=== PATIENT | female | born 1950 | race Caucasian/White ===

== ENCOUNTER → 2020-05-28 | Outpatient (CLI) | payer SELFPAY | LOC: M LABSMTC 08:02 | PROVIDERS: ATTEND Pediatrics | DX: Z20.828 Contact with and (suspected) exposure to other viral communicable diseases (principal) ==

== ENCOUNTER → 2020-07-04 | Outpatient (CLI) | payer SELFPAY | LOC: M LABSMTC 10:40 | PROVIDERS: ATTEND Pediatrics | DX: Z20.822 Contact with and (suspected) exposure to COVID-19 (principal) ==

== ENCOUNTER → 2023-03-21 | Outpatient (REF) | payer MEDICARE, OTHER ==
[~2023-03-21] MED LIST: ATEN50TA2 PO; FOSI10TA44 PO; HYDR-3490 PO
== END ==
LOC: M LAB REF 12:16
PROVIDERS: ATTEND Internal Medicine
DX: C18.2 Malignant neoplasm of ascending colon (principal)

== ENCOUNTER → 2023-03-25 | Outpatient (CLI) | payer MEDICARE, OTHER ==
[~2023-03-25] MED LIST changes: +GASTROGRAFIN SOLUTION 30ML As Ordered ONE; +ISOVUE-370 76% 100ML VIAL As Ordered ONE
== END ==
LOC: M RAD 09:25
PROVIDERS: ATTEND Surgery
DX: C18.2 Malignant neoplasm of ascending colon (principal)
CPT/HCPCS: 74178; Q9963; Q9967

== ENCOUNTER 2023-04-09 09:56 | Inpatient (IN) | payer MEDICARE, OTHER ==
[~2023-04-09] VITALS: Ht 157.5 cm; Wt 81.0 kg
[~2023-04-09 09:56] MED LIST changes: -GASTROGRAFIN SOLUTION 30ML As Ordered ONE; -ISOVUE-370 76% 100ML VIAL As Ordered ONE; +ceFAZolin SOD 2 GM in IV 1 EA IV ONE; +metroNIDAZOLE 500 MG in IV 1 EA IV ONE
[2023-04-09] MEDS ORDERED: LR 1,000 ML IV SCH (10:10)
[2023-04-09] MEDS ORDERED: GLUCAGON INJ 1MG VIAL As Ordered ONE (10:57)
[2023-04-09] MEDS ORDERED: ACETAMINOPHEN 1000MG 100ML IV BAG As Ordered ONE (11:07)
[2023-04-09] MEDS ORDERED: ONDANSETRON 4MG 2ML VIAL As Ordered ONE (11:07)
[2023-04-09] MEDS ORDERED: ROCURONIUM BROMIDE 50MG/5ML VIAL As Ordered ONE ×2 (11:07→13:12)
[2023-04-09] MEDS ORDERED: KETOROLAC 60MG 2ML VIAL As Ordered ONE (11:07)
[2023-04-09] MEDS ORDERED: SUGAMMADEX SODIUM 500 MG/5 ML VIAL (BRIDION) As Ordered ONE (11:07)
[2023-04-09] MEDS ORDERED: MIDAZOLAM INJ 2MG/2ML VIAL As Ordered ONE (11:07)
[2023-04-09] MEDS ORDERED: propofoL 200 MG/20 ML VIAL As Ordered ONE (11:07)
[2023-04-09] MEDS ORDERED: LIDOCAINE 2% 100MG/5ML SDV (FOR ANES.) As Ordered ONE (11:07)
[2023-04-09] MEDS ORDERED: fentaNYL 100 MCG/2 ML INJECTION As Ordered ONE ×2 (11:08→13:21)
[2023-04-09] MEDS ORDERED: PHENYLephrine 500MCG 5ML (100MCG/ML) SYRINGE As Ordered ONE (11:08)
[2023-04-09] MEDS ORDERED: oxyCODONE 5MG TAB PO PRN (14:00)
[2023-04-09] MEDS ORDERED: ONDANSETRON 4MG 2ML VIAL IV PRN ×2 (14:00→14:10)
[2023-04-09] MEDS ORDERED: HYDROMORPHONE HCL 0.5 MG/ 0.5 ML SYRINGE IV PRN (14:00)
[2023-04-09] MEDS ORDERED: fentaNYL 100 MCG/2 ML INJECTION IV PRN (14:00)
[2023-04-09] MEDS ORDERED: KETOROLAC 30 MG/ML 1ML VIAL IV PRN (14:10)
[2023-04-09] MEDS ORDERED: MORPHINE 4 MG/ML 1ML VIAL IV PRN (14:10)
[2023-04-09] MEDS ORDERED: MORPHINE 2 MG/ML 1ML VIAL IV PRN ×2 (14:10)
[2023-04-09] MEDS ORDERED: IPRATROPIUM 0.5MG/ALBUTEROL 2.5MG INH SOL UD 3ML (DUONEB) NEB PRN (14:10)
[2023-04-09] MEDS ORDERED: PROMETHAZINE 25MG/ML 1ML VIAL IV STA (15:01)
[2023-04-09 15:23] VITALS: BP 115/70; TEMP 97.9; O2SAT 98
[2023-04-09] MEDS: NS 1,000 ML IV SCH ×2 (15:23→23:24)
[2023-04-09 16:02] VITALS: BP 131/75; TEMP 97.9; O2SAT 97
[2023-04-09] MEDS ORDERED: MED REC IN PROGRESS XX SCH (16:35)
[2023-04-09 17:00] VITALS: BP 134/73; TEMP 97.9; O2SAT 97
[2023-04-09] MEDS: KETOROLAC 30 MG/ML 1ML VIAL IV SCH ×2 (17:32→23:24)
[2023-04-09 18:00] VITALS: BP 132/71; TEMP 98.1; O2SAT 93
[2023-04-09] MEDS ORDERED: HOME MED LIST COMPLETE! XX SCH (18:30)
[2023-04-09 19:09] VITALS: BP 130/70; TEMP 98.2; O2SAT 96
[2023-04-09] MEDS: ALVIMOPAN 12 MG CAPSULE (ENTEREG) PO SCH (20:17)
[2023-04-09 20:23] VITALS: BP 130/68; TEMP 97.7; O2SAT 98
[2023-04-09] MEDS: IPRATROPIUM 0.5MG/ALBUTEROL 2.5MG INH SOL UD 3ML (DUONEB) NEB SCH (20:29)
[2023-04-10 02:00] VITALS: BP 135/69; TEMP 97.8; O2SAT 96
[2023-04-10] MEDS: IPRATROPIUM 0.5MG/ALBUTEROL 2.5MG INH SOL UD 3ML (DUONEB) NEB SCH ×4 (02:00→20:04)
[2023-04-10] MEDS: KETOROLAC 30 MG/ML 1ML VIAL IV SCH ×3 (05:30→17:17)
[2023-04-10 05:41] VITALS: BP 136/74; TEMP 97.9; O2SAT 97
[2023-04-10 06:09] LABS: HEMATOCRIT 38.6 % (36.0-47.0); HEMOGLOBIN 13.2 g/dl (12.0-15.5); MEAN CORPUSCULAR HEMOGLOBIN 35.3 pg (27.0-33.0); MEAN CORPUSCULAR HGB CONC 34.2 g/dl (32.0-36.5); MEAN CORPUSCULAR VOLUME 103.2 fl (80.0-96.0); PLATELET COUNT, AUTOMATED 192 10^3/uL (150-450); RED BLOOD COUNT 3.74 10^6/uL (4.00-5.40)
[2023-04-10 06:47] LABS: BLOOD UREA NITROGEN 16 MG/DL (9-23); CARBON DIOXIDE LEVEL 24 MMOL/L (20-31); CHLORIDE LEVEL 106 MMOL/L (98-107); CREATININE FOR GFR 0.96 MG/DL (0.55-1.30); GLOMERULAR FILTRATION RATE > 60.0 (>39); GLUCOSE, FASTING 101 MG/DL (74-106); POTASSIUM SERUM 3.9 MMOL/L (3.5-5.1); SODIUM LEVEL 139 MMOL/L (136-145)
[2023-04-10] MEDS: NS 1,000 ML IV SCH (07:05)
[2023-04-10] MEDS: ALVIMOPAN 12 MG CAPSULE (ENTEREG) PO SCH ×2 (08:56→20:34)
[2023-04-10] MEDS: FOSINOPRIL 10MG TABLET PO SCH (08:57)
[2023-04-10] MEDS: PANTOPRAZOLE 40MG VIAL IV SCH (08:57)
[2023-04-10] MEDS: atenoloL 50 MG TAB PO SCH (08:57)
[2023-04-10] MEDS ORDERED: ACETAMINOPHEN 500 MG TAB PO PRN (09:30)
[2023-04-10] MEDS ORDERED: MORPHINE 2 MG/ML 1ML VIAL IV PRN ×2 (10:10)
[2023-04-10 14:26] VITALS: BP 119/57; TEMP 98.2; O2SAT 93
[2023-04-10 18:05] VITALS: BP 115/57; TEMP 98.8; O2SAT 93
[2023-04-10 20:53] VITALS: BP 115/57; TEMP 98.2; O2SAT 94
[2023-04-11] MEDS: KETOROLAC 30 MG/ML 1ML VIAL IV SCH ×2 (00:56→06:06)
[2023-04-11] MEDS: IPRATROPIUM 0.5MG/ALBUTEROL 2.5MG INH SOL UD 3ML (DUONEB) NEB SCH ×2 (02:00→07:22)
[2023-04-11 05:52] LABS: HEMATOCRIT 35.9 % (36.0-47.0); HEMOGLOBIN 12.2 g/dl (12.0-15.5); MEAN CORPUSCULAR HEMOGLOBIN 36.1 pg (27.0-33.0); MEAN CORPUSCULAR VOLUME 106.2 fl (80.0-96.0); PLATELET COUNT, AUTOMATED 170 10^3/uL (150-450); RED BLOOD COUNT 3.38 10^6/uL (4.00-5.40); WHITE BLOOD COUNT 5.6 10^3/uL (4.0-10.0)
[2023-04-11 06:16] LABS: BLOOD UREA NITROGEN 18 MG/DL (9-23); CALCIUM LEVEL 8.4 MG/DL (8.3-10.6); CARBON DIOXIDE LEVEL 25 MMOL/L (20-31); CHLORIDE LEVEL 109 MMOL/L (98-107); CREATININE FOR GFR 0.88 MG/DL (0.55-1.30); GLOMERULAR FILTRATION RATE > 60.0 (>39); GLUCOSE, FASTING 96 MG/DL (74-106); POTASSIUM SERUM 3.6 MMOL/L (3.5-5.1); SODIUM LEVEL 143 MMOL/L (136-145)
[2023-04-11 06:19] VITALS: BP 158/81; TEMP 97.9; O2SAT 96
[2023-04-11 08:40] VITALS: BP 156/76
[2023-04-11] MEDS: ALVIMOPAN 12 MG CAPSULE (ENTEREG) PO SCH (08:40)
[2023-04-11] MEDS: PANTOPRAZOLE 40MG VIAL IV SCH (08:40)
[2023-04-11] MEDS: atenoloL 50 MG TAB PO SCH (08:40)
[2023-04-11] MEDS: FOSINOPRIL 10MG TABLET PO SCH (09:00)
== END 2023-04-11 10:30 | disposition home or self-care (01) | DRG 331 ==
LOC: M OR 09:56 → M MS5PR 14:55
PROVIDERS: ADMIT Surgery; ATTEND Surgery
PROC: 0DTF4ZZ Resection of Right Large Intestine, Percutaneous Endoscopic Approach (ICD-10-PCS; principal; 2023-04-09 11:30)
DX: C18.2 Malignant neoplasm of ascending colon (principal); I10 Essential (primary) hypertension; Z83.3 Family history of diabetes mellitus; Z79.899 Other long term (current) drug therapy; Z88.1 Allergy status to other antibiotic agents; Z88.8 Allergy status to other drugs, medicaments and biological substances

== ENCOUNTER → 2024-06-11 | Outpatient (CLI) | payer OTHER ==
[~2024-06-11] MED LIST changes: -ceFAZolin SOD 2 GM in IV 1 EA IV ONE; -metroNIDAZOLE 500 MG in IV 1 EA IV ONE
== END ==
LOC: M WHC 07:33
PROVIDERS: ATTEND Internal Medicine
DX: Z12.31 Encounter for screening mammogram for malignant neoplasm of breast (principal); Z13.820 Encounter for screening for osteoporosis; R92.323 Mammographic fibroglandular density, bilateral breasts; Z78.0 Asymptomatic menopausal state

== ENCOUNTER → 2024-06-22 | Outpatient (REF) | payer OTHER ==
[2024-06-22 14:53] LABS: VITAMIN B12 LEVEL 446 PG/ML (211-911)
[2024-06-22 14:55] LABS: CARCINOEMBRYONIC ANTIGEN < 2.0 NG/ML (<2.5)
[2024-06-22 14:56] LABS: FOLATE 9.4 NG/ML (>5.4)
== END ==
LOC: M LAB REF 12:19
PROVIDERS: ATTEND Internal Medicine
DX: K76.0 Fatty (change of) liver, not elsewhere classified (principal); R74.01 Elevation of levels of liver transaminase levels; Z85.038 Personal history of other malignant neoplasm of large intestine

== ENCOUNTER 2024-07-02 09:26 | Day surgery (SDC) | payer OTHER ==
[~2024-07-02] VITALS: Ht 157.5 cm; Wt 78.0 kg
[~2024-07-02 09:26] MED LIST changes: +MAGN400C PO; +NETA2.5D2 OP
[2024-07-02] MEDS ORDERED: propofoL 200 MG/20 ML VIAL As Ordered ONE (12:29)
[2024-07-02 12:45] VITALS: TEMP 97.5
[2024-07-02 13:05] VITALS: BP 151/87; O2SAT 97
== END 2024-07-02 13:14 | disposition home or self-care (01) ==
LOC: M OPP 09:26
PROVIDERS: ATTEND Surgery
DX: Z12.11 Encounter for screening for malignant neoplasm of colon (principal); K57.30 Diverticulosis of large intestine without perforation or abscess without bleeding; Z85.038 Personal history of other malignant neoplasm of large intestine; Z90.49 Acquired absence of other specified parts of digestive tract; I10 Essential (primary) hypertension; Z79.899 Other long term (current) drug therapy; Z88.1 Allergy status to other antibiotic agents

== ENCOUNTER → 2024-07-05 | Outpatient (CLI) | payer OTHER | LOC: M PLAIMG 09:21 | PROVIDERS: ATTEND Internal Medicine | DX: Z85.038 Personal history of other malignant neoplasm of large intestine (principal) ==

== ENCOUNTER → 2025-03-14 | Outpatient (REF) | payer OTHER | LOC: M LAB REF 17:24 | PROVIDERS: ATTEND Internal Medicine | DX: E78.00 Pure hypercholesterolemia, unspecified (principal) ==